=== PATIENT | female | born 1985 | race Caucasian/White ===

== ENCOUNTER 2021-10-06 17:47 | Emergency (ER) | payer SELFPAY ==
[~2021-10-06] VITALS: Ht 180.3 cm; Wt 70.0 kg
[2021-10-06 17:54] VITALS: BP 122/75
[2021-10-06 19:18] LABS: BASOPHILS % (AUTO) 0.8 % (0-1); EOSINOPHILS % (AUTO) 0.7 % (0-6); HEMATOCRIT 41.1 % (35.0-45.0); HEMOGLOBIN 13.8 g/dl (12.0-16.0); LYMPHOCYTES # (AUTO) 1.3 X10'3 (1.1-4.8); LYMPHOCYTES % (AUTO) 31.2 % (21-51); MEAN CORPUSCULAR HEMOGLOBIN 30.3 PG (27.0-31.0); MEAN CORPUSCULAR HGB CONC 33.5 g/dL (33.0-36.5); MEAN CORPUSCULAR VOLUME 90.7 FL (78-98); MEAN PLATELET VOLUME 7.7 FL (7.4-10.4); MONOCYTES # (AUTO) 0.3 X10'3 (0-0.9); MONOCYTES % (AUTO) 6.3 % (2-12); NEUTROPHILS # (AUTO) 2.6 X10'3 (1.8-7.7); PLATELET COUNT 255 X10'3 (140-440); RED BLOOD COUNT 4.53 X10'6 (4.20-5.60); RED CELL DISTRIBUTION WIDTH 13.8 % (11.5-14.5); WHITE BLOOD COUNT 4.2 X10'3 (4.5-11.0)
[2021-10-06 19:28] LABS: APTT 29 SECONDS (22-32)
[2021-10-06 19:44] LABS: URINE HCG NEGATIVE (NEG)
== END 2021-10-06 21:10 | disposition home or self-care (01) ==
LOC: ER 17:48
DX: Z13.89 Encounter for screening for other disorder (principal); D50.9 Iron deficiency anemia, unspecified; Z86.2 Personal history of diseases of the blood and blood-forming organs and certain disorders involving the immune mechanism; Z60.2 Problems related to living alone
CPT/HCPCS: 36415; 81025; 85025; 85610; 85730; 99281; 99283